=== PATIENT | male | born 1965 | race Caucasian/White ===

== ENCOUNTER 2019-06-09 06:00 | Outpatient (RCR) | payer BC, SELFPAY | END 2019-06-26 23:00 | disposition home or self-care (01) | LOC: TPT 06:00 | PROVIDERS: Family Provider Nurse Practitioner Family; Visit Provider Nurse Practitioner Family | DX: G89.29 Other chronic pain (principal); M25.512 Pain in left shoulder | CPT/HCPCS: 97110 ×5; 97140 ×3; 97530 ×2; G0283 ==

== ENCOUNTER 2020-02-24 15:30 | Emergency (ER) | payer BC, SELFPAY ==
[2020-02-24 15:35] VITALS: BMI 24.3
[2020-02-24 15:48] VITALS: BP 113/73; PULSE 78; RESP 18; TEMP 37.2; O2SAT 94
--- NOTE | 2020-02-24 16:15 | XR_ITS ---
WS: [id number] EXAM: AP CHEST: PORTABLE UPRIGHT DATE OF EXAM: 02/24/2020, 1648 hours COMPARISON: Chest x-ray from 07/06/2018 and 10/08/2014. HISTORY: Patient is 54 years old with fever and fatigue. Cough for the last several days. Shortness of breath. . FINDINGS: The cardiac silhouette is normal in size. The mediastinal contours are normal. The pulmonary vas cularity is normal. There appears to be some minimal patchy infiltrate within the mid and upper oute r right hemithorax. I also question some minimal patchy infiltrate in the peripheral left lung. Ther e is no effusion or pneumothorax. No acute bony abnormality is seen. XR/XR chest 1V portable [id number] IMPRESSION: Suspected patchy infiltrates bilaterally. Most prominent in the upper outer rig ht hemithorax.
[2020-02-24 16:36] LABS: Basophils % 0.2 %; Eosinophils % 0.2 %; Hematocrit 45.5 % (42.0-52.0); Hemoglobin 15.2 g/dL (11.7-16.6); Lymphocytes # 0.7 10^3/uL (0.8-4.8); Lymphocytes % 12.5 %; Mean Corpuscular HGB Conc 33.4 g/dL (30.0-36.0); Mean Corpuscular Hemoglobin 32.3 pg (28.0-34.0); Mean Corpuscular Volume 96.6 fL (80-94); Mean Platelet Volume 11.6 fL (7.4-10.4); Monocytes # 0.6 10^3/uL (0.2-0.9); Monocytes % 10.8 %; Neutrophils # 4.08 10^3/uL (1.8-7.7); Neutrophils % 76.1 %; Nucleated Red Blood Cells % 0 %; Platelet Count 142 10^3/cmm (130-400); Red Blood Count 4.71 10^6/uL (4.1-5.3); Red Cell Distribution Width 12.2 % (12.1-15.1); White Blood Count 5.4 10^3/uL (4.0-10.0)
[2020-02-24 16:49] LABS: INR 0.88 (0.8-1.2)
[2020-02-24 16:52] LABS: D Dimer 1.24 ug/mIFEU (0-0.59)
[2020-02-24 16:58] LABS: Troponin T (5th) Once 6 ng/L (0-15)
[2020-02-24 17:48] LABS: Alanine Aminotransferase 21 U/L (0-41); Albumin Level 3.7 g/dL (3.5-5.2); Alkaline Phosphatase 66 IU/L (40-130); Aspartate Amino Transferase 32 U/L (0-40); Blood Urea Nitrogen 18 mg/dL (6-20); Calcium 8.7 mg/dL (8.5-10.5); Carbon Dioxide 26 mmol/L (22-29); Chloride 102 mmol/L (98-107); Creatine Phosphokinase 29 U/L (39-308); Glucose 98 mg/dL (65-115); Osmolality Calculated 284 mOsm/kg (285-295); Sodium 139 mmol/L (136-145); Total Bilirubin 0.3 mg/dL (0.15-1.2); Total Protein 6.7 g/dL (6.6-8.7)
--- NOTE | 2020-02-24 18:16 | ED_ITS ---
HPI - SOB/Dyspnea General: Chief Complaint: Shortness of Breath/Dyspnea Stated Complaint: COVID+ Time Seen by Provider: 02/24/20 15:55 Source: patient Mode of arrival: ambulatory Limitations: no limitations History of Present Illness: HPI Narrative: 54-year-old gentleman who has been feeling unwell for 11 days now with a low-grade fever initially 101 but now in the low 100s, mild cough, mild shortness of breath presents to the emergency room for evaluation to see if he has pneumonia. About 4 days ago he got tested for COVID-19 and he tested positive. When he saw his primary care provider today his oxygen saturations were 90% so he sent him to the emergency department to evaluate for pneumonia. He currently is afebrile, feels mild shortness of breath, no cough. MD elicited complaint: shortness of breath Pertinent past history: asthma Associated symptoms: Reports fever(s); Deny abdominal pain, nausea, palpitations, polydipsia, polyuria or vomiting Review of Systems General: Reports: 10 or more systems reviewed and unremarkable except in HPI and below Const: Reports: fever(s), chills and body aches Eyes: Denies: change in vision or blurry vision ENMT: Denies: throat pain, enlarged tonsils, odynophagia, hoarseness, mouth pain or swelling of lips/tongue Card: Denies: palpitations, irregular heart rhythm, edema or swelling of feet/ankles Resp: Reports: dyspnea and non-productive cough; Denies: productive cough GI: Denies: abdominal pain, nausea or vomiting : Denies: flank pain, dysuria, urinary frequency, urinary urgency or urinary hesitancy Musc: Denies: neck pain, back pain or extremity swelling Skin/Breast: Denies: rash, pruritus or erythema Neuro: Denies: headache(s), numbness in extremities or weakness in extremities Endo: Denies: polyuria, polydipsia or tired all the time Physical Exam Const: COMMON NORMALS: no acute distress, average body habitus, patient oriented x3, no limitations, healthy appearing, alert and well nourished HENMT: COMMON NORMALS: normocephalic, atraumatic and moist oral mucous membranes HEAD & SCALP: normocephalic and atraumatic Eye: COMMON NORMALS: Equal, round and reactive pupils present, EOMs intact bilaterally, conjunctivae normal and no scleral icterus CONJUNCTIVA: Yes conjunctivae normal PUPIL: Yes Equal, round and reactive pupils present Neck/C-Spine: COMMON NORMALS: no meningeal signs and no JVD Resp: COMMON NORMALS: normal respiratory effort, No retractions, No use of accessory muscles, clear to auscultation bilaterally and percussion normal AUSCULTATION: clear to auscultation bilaterally PERCUSSION: percussion normal Cardio: COMMON NORMALS: no JVD, regular rate, regular rhythm, S1 normal heart sound present, S2 normal heart sound present, No gallops present (Cardio), No clicks present (Cardio), No murmurs present (Cardio), No rub (Cardio) and Peripheral pulses 2+ throughout RATE: regular rate RHYTHM: regular rhythm HEART SOUNDS: S1 normal heart sound present and S2 normal heart sound present PERIPHERAL PULSES: Peripheral pulses 2+ throughout GI: COMMON NORMALS: Normal to inspection, nondistended, normoactive bowel sounds present, Soft to palpation, non-tender, No hepatosplenomegaly present, no masses and no bruits PALPATION: Yes Soft to palpation and Yes No hepatosplenomegaly present Neuro: COMMON NORMALS: patient oriented x3 SENSORIUM/ORIENTATION: Yes alert MENINGEAL SIGNS: Yes no meningeal signs Course Reevaluation(s): Reevaluation #1: discussed his lab and imaging findings with him. White cell count normal, chest x-ray compatible with COVID pneumonia. Since his oxygen saturation has been between 93 and 94% on room air I do not think he deserves to be admitted to the hospital. We will discharge him home with a prescription for azithromycin and dexamethasone. He is to follow-up with his primary care provider. He is given strict instructions to return for low oxygen saturations as he has a pulse oximeter at home. If he has any other concerns or feels worse he is also to return. He voiced understanding and is in agreement with the plan Time: 18:16 Vital Signs: Vital signs: Vital Signs Temperature 98.9 F 02/24/20 15:48 Pulse Rate 63 02/24/20 18:35 Respiratory Rate 18 02/24/20 18:35 Blood Pressure 105/58 02/24/20 18:35 Pulse Oximetry 93 02/24/20 18:35 MDM - SOB/Dyspnea MDM Narrative: Medical decision making narrative: 54-year-old gentleman who presents to the emergency department for evaluation to see if he has pneumonia as he recently tested positive for COVID-19. He has mild shortness of breath, he is afebrile today, has normal oxygen saturations. Chest x-ray is compatible with probably viral pneumonia. His not a candidate for hospital admission. He is therefore discharged home with a prescription for oral steroids and oral azithromycin. Lab Data: Labs: Lab Results 02/24/20 02/24/20 02/24/20 Range/Units 16:25 16:25 16:25 WBC 5.4 (4.0-10.0) 10^3/ uL RBC 4.71 (4.1-5.3) 10^6/u L Hgb 15.2 (11.7-16.6) g/dL Hct 45.5 (42.0-52.0) % MCV 96.6 H (80-94) fL MCH 32.3 (28.0-34.0) pg MCHC 33.4 (30.0-36.0) g/dL RDW 12.2 (12.1-15.1) % Plt Count 142 (130-400) 10^3/c mm MPV 11.6 H (7.4-10.4) fL Neut % (Auto) 76.1 % Lymph % (Auto) 12.5 % [place] % (Auto) 10.8 % Eos % (Auto) 0.2 % Baso % (Auto) 0.2 % Neut # (Auto) 4.08 (1.8-7.7) 10^3/u L Lymph # (Auto) 0.7 L (0.8-4.8) 10^3/u L [place] # (Auto) 0.6 (0.2-0.9) 10^3/u L Eos # (Auto) 0.0 (0.0-0.8) 10^3/u L Baso # (Auto) 0.0 (0.0-0.1) 10^3/u L Nucleated RBC % (a uto) 0 % Nucleated RBCs # 0.0 /100WBC PT 12.20 (12.1-14.9) SECO NDS INR 0.88 (0.8-1.2) D-Dimer 1.24 H (0-0.59) ug/mIFE U Sodium Cancelled Potassium Cancelled Chloride Cancelled Carbon Dioxide Cancelled Anion Gap Cancelled BUN Cancelled Creatinine Cancelled GFR Calculation Cancelled Glucose Cancelled Calculated Osmolal ity Cancelled Lactic Acid (0.5-2.2) mmol/L Calcium Cancelled Ferritin Cancelled Total Bilirubin Cancelled AST Cancelled ALT Cancelled Alkaline Phosphata se Cancelled Lactate Dehydrogen ase Cancelled Creatine Kinase Cancelled Troponin T Gen 5 n g/L (0-15) ng/L C-Reactive Protein Cancelled Total Protein Cancelled Albumin Cancelled Globulin Cancelled Procalcitonin Cancelled 02/24/20 02/24/20 02/24/20 Range/Units 16:25 16:25 17:15 WBC (4.0-10.0) 10^3/ uL RBC (4.1-5.3) 10^6/u L Hgb (11.7-16.6) g/dL Hct (42.0-52.0) % MCV (80-94) fL MCH (28.0-34.0) pg MCHC (30.0-36.0) g/dL RDW (12.1-15.1) % Plt Count (130-400) 10^3/c mm MPV (7.4-10.4) fL Neut % (Auto) % Lymph % (Auto) % [place] % (Auto) % Eos % (Auto) % Baso % (Auto) % Neut # (Auto) (1.8-7.7) 10^3/u L Lymph # (Auto) (0.8-4.8) 10^3/u L [place] # (Auto) (0.2-0.9) 10^3/u L Eos # (Auto) (0.0-0.8) 10^3/u L Baso # (Auto) (0.0-0.1) 10^3/u L Nucleated RBC % (a uto) % Nucleated RBCs # /100WBC PT (12.1-14.9) SECO NDS INR (0.8-1.2) D-Dimer (0-0.59) ug/mIFE U Sodium 139 Potassium 4.0 Chloride 102 Carbon Dioxide 26 Anion Gap 15.0 BUN 18 Creatinine 0.8 GFR Calculation 100.0 Glucose 98 Calculated Osmolal ity 284 L Lactic Acid 1.0 (0.5-2.2) mmol/L Calcium 8.7 Ferritin Total Bilirubin 0.3 AST 32 ALT 21 Alkaline Phosphata se 66 Lactate Dehydrogen ase 265 H Creatine Kinase 29 L Troponin T Gen 5 n g/L 6 (0-15) ng/L C-Reactive Protein 100.9 H Total Protein 6.7 Albumin 3.7 Globulin 3.0 Procalcitonin 0.09 Imaging Data^: CXR: Radiologist's impression: [address] [address] XRay Report Signed Patient: Michael Torres #: [id number] : 1965Acct#:[id number] Age/Sex: 54 / MADM Date: 02/24/20 Loc: ERRoom/Bed: Attending Dr: Ordering Provider/Ordering MD: Anish Powell MD, [facility] [place] Date of Service: 02/24/20 Procedure(s): XR chest 1V portable [id number] Accession Number(s): [id number] Report Number: [id number] WS: [id number] EXAM: AP CHEST: PORTABLE UPRIGHT DATE OF EXAM: 02/24/2020, 1648 hours COMPARISON: Chest x-ray from 07/06/2018 and 10/08/2014. HISTORY: Patient is 54 years old with fever and fatigue. Cough for the last several days. Shortness of breath.. FINDINGS: The cardiac silhouette is normal in size. The mediastinal contours are normal. The pulmonary vascularity is normal. There appears to be some minimal patchy infiltrate within the mid and upper outer right hemithorax. I also question some minimal patchy infiltrate in the peripheral left lung. There is no effusion or pneumothorax. No acute bony abnormality is seen. XR/XR chest 1V portable [id number] IMPRESSION: Suspected patchy infiltrates bilaterally. Most prominent in the upper outer right hemithorax. Dictated By:Lam Ramirez MD Signed By:Lam Ramirez MDSigned Date/Time:02/24/201703 DD/ 01 Discharge Plan Discharge Patient Disposition: Home Clinical Impression: Pneumonia due to 2019 novel coronavirus Condition: Stable Prescriptions: New azithromycin 250 mg tablet See Rx Instructions .ROUTE .COMPLEX 5 Days Qty: 6 RF: 0 dexamethasone 6 mg tablet 6 mg PO DAILY 10 Days Qty: 10 RF: 0 Continued omeprazole 20 mg capsule,delayed release(DR/EC) 20 mg PO DAILY Qty: 90 RF: 0 Singulair 10 mg tablet 10 mg PO DAILY RF: 0 levocetirizine 5 mg tablet 5 mg PO DAILY RF: 0 Dulera 200-5 mcg/actuation Hfa Aerosol Inhaler 2 puff INHALATION BID RF: 0 Salt Rinse See Rx Instructions .ROUTE .COMPLEX RF: 0 Nucala 100 mg/mL auto-injector See Rx Instructions .ROUTE .COMPLEX RF: 0 Discontinued prednisone 10 mg tablet See Rx Instructions .ROUTE .COMPLEX RF: 0 Discharge Orders: Discharge Order (Routine); Ordered 02/24/20 Ordered By: Anish Powell Discharge Diet: Usual diet Discharge Activity: Increase activity as tolerated Patient Instructions: Pneumonia - Viral Activity Restrictions/Additional Instructions: Return for any new or worsening symptoms especially if your oxygen levels drop below 88 or you have significantly worsening breathing problems. Follow-up with your primary care provider within 2 days, even if it is by telemedicine. Take the medications as prescribed. Discharge Date/Time: 02/24/20 18:37 Coding Level of Care Code ED Link Trainer Operator for Tommy Gaitan
[2020-02-24 18:35] VITALS: BP 105/58; PULSE 63; RESP 18; O2SAT 93
[2020-02-24 21:03] LABS: Procalcitonin 0.09 ng/mL (0-0.5)
[2020-02-24 21:14] LABS: C Reactive Protein 100.9 mg/L (0.0-4.9)
[2020-02-24 21:24] LABS: Lactate Dehydrogenase 265 U/L (135-225)
== END 2020-02-24 18:37 | disposition home or self-care (01) ==
PROVIDERS: Emergency Provider Family Medicine
DX: U07.1 COVID-19 (principal); J12.89 Other viral pneumonia
CPT/HCPCS: 12345; 71045; 80053; 82550; 82728; 83605; 83615; 84145; 84484; 85025; 85378; 85610; 86140; 96374; 96375; 99282; 99284; J2930

== ENCOUNTER → 2020-03-05 11:15 | Outpatient (BNVA) | payer BC, SELFPAY | PROVIDERS: Visit Provider Family Medicine | DX: J12.89 Other viral pneumonia; U07.1 COVID-19; Z51.6 Encounter for desensitization to allergens | CPT/HCPCS: 71046 ==

== ENCOUNTER → 2020-07-17 10:30 | Outpatient (BNVA) | payer BC, SELFPAY | PROVIDERS: Visit Provider Nurse Practitioner Family | DX: M25.561 Pain in right knee (principal); M25.562 Pain in left knee; Z51.6 Encounter for desensitization to allergens | CPT/HCPCS: 73562 ==

== ENCOUNTER → 2022-11-04 09:56 | Outpatient (BNVA) | payer BC, SELFPAY | PROVIDERS: PCP Nurse Practitioner; Referring Provider Nurse Practitioner; Visit Provider Student in an Organized Health Care Education/Training Program | DX: M17.12 Unilateral primary osteoarthritis, left knee (principal) | CPT/HCPCS: 73560; 73565 ==

== ENCOUNTER 2023-02-15 10:10 | Outpatient (CLI) | payer BC, SELFPAY ==
--- NOTE | 2023-02-15 10:15 | MR_ITS ---
WS: [id number] MRI LEFT KNEE HISTORY: Medial knee pain. Chronic. Prior meniscal repair. COMPARISON: Radiograph 11/04/2022 Anterior cruciate ligament: Abnormal ACL. Very small caliber ligament. There is a gap in the distal l igament consistent with a full-thickness tear. Posterior cruciate ligament: Intact. Medial collateral ligament: MCL is being displaced from the joint line by the extruded meniscus and o steophytes. Posterior lateral corner structures: Intact. Medial menisci: Abnormal signal throughout the entire posterior horn. Meniscus is extruded from the j oint line. Lateral meniscus: Small amount of increased T2 signal in the posterior horn towards the meniscal root . Fraying along the surfaces of the posterior horn. Extensor mechanism: Distal quadriceps tendon and patellar tendons are intact. Fluid and soft tissue: No joint effusion. There is a small amount of edema surrounding the knee. Lobu lated Eldridge's cyst extends over a length of 4.5 cm. There are a few tiny loose bodies within the cyst . Osseous and articular structures: Patellofemoral compartment: Mild narrowing patellofemoral joint space with mild chondromalacia. No ma rrow edema. Medial compartment: Moderate to severe narrowing of the medial compartment with osteophytes. Loss of cartilage is diffuse with cortical irregularity and a small amount of edema along the weightbearing s urfaces. Lateral compartment: Moderate narrowing of the lateral compartment mild chondromalacia. Marrow edema at the base of the tibial spines. IMPRESSION: 1. Abnormal ACL. Full-thickness tear along the inferior ACL with marked thinning of the fibers. 2. MCL is displaced to the joint line by osteophytes and extruded meniscus. 3. Diffuse abnormal signal throughout the posterior horn medial meniscus from tears and extrusion. 4. Moderate to severe medial compartment internal derangement as described above. Complete loss of ca rtilage along the weightbearing surfaces. 5. Moderate narrowing lateral compartment with mild chondromalacia.
== END 2023-02-15 10:11 | disposition home or self-care (01) ==
PROVIDERS: PCP Nurse Practitioner; Visit Provider Student in an Organized Health Care Education/Training Program
DX: M17.12 Unilateral primary osteoarthritis, left knee (principal); S83.512A Sprain of anterior cruciate ligament of left knee, initial encounter; X58.XXXA Exposure to other specified factors, initial encounter; M25.762 Osteophyte, left knee; M23.8X2 Other internal derangements of left knee; M22.42 Chondromalacia patellae, left knee; Z98.890 Other specified postprocedural states
CPT/HCPCS: 73721

== ENCOUNTER 2024-03-12 20:38 | Emergency (ER) | payer BC, SELFPAY ==
[2024-03-12] VITALS (7 sets, daily range): BP systolic 133–159; BP diastolic 80–105; PULSE 54–65; RESP 14–18; TEMP 36.4; O2SAT 94–98
--- NOTE | 2024-03-12 21:42 | CTR_ITS ---
PROCEDURE INFORMATION: Exam: CT Abdomen And Pelvis Without Contrast Exam date and time: 03/12/2024 9:52 PM Age: 58 years old Clinical indication: Abdominal pain; Localized; Left; Prior surgery; Surgery date: 6+ months; Surgery type: Hernia and appy; Additional info: Left flank/groin pain TECHNIQUE: Imaging protocol: Computed tomography of the abdomen and pelvis without contrast. Radiation optimization: All CT scans at this facility use at least one of these dose optimization techniques: automated exposure control; mA and/or kV adjustment per patient size (includes targeted exams where dose is matched to clinical indication); or iterative reconstruction. COMPARISON: CT chest wo con [id number] 08/21/2018 9:13 AM RADIATION DOSE METRICS: Total DLP (mGy-cm): 572.09 FINDINGS: Lungs: Lung bases are clear as visualized. Diaphragm: There is a small hiatal hernia. Liver: Normal. No mass. Gallbladder and biliary ducts: Normal. No calcified stones. No ductal dilation. Pancreas: Normal. No ductal dilation. Spleen: Normal. No splenomegaly. Adrenal glands: Normal. No mass. Kidneys and ureters: Benign-appearing renal cyst is noted on the right with small punctate internal calcification. No hydronephrosis is noted on the right. Nonobstructing renal calculi are noted bilaterally. There is mild hydronephrosis on the left with hydroureter extending to the distal left ureter where there appears to be 2 adjacent stones present. Both stones measure 2-3 mm in size. Stomach and bowel: There are scattered colonic diverticula. No large bowel wall thickening is appreciated. No dilated loops of large or small bowel is appreciated. Appendix: The appendix is not definitely identified. Intraperitoneal space: Unremarkable. No free air. No significant fluid collection. Vasculature: The aorta is normal in caliber. There is calcified plaque involving the aorta and its branch vessels. Lymph nodes: Unremarkable. No enlarged lymph nodes. Urinary bladder: Unremarkable as visualized. Reproductive: Unremarkable as visualized. Bones/joints: Unremarkable. No acute fracture. Soft tissues: There is a small fat filled periumbilical hernia. CT/CT kidney stone [id number] IMPRESSION: 1. Nephrolithiasis. 2. Mild hydronephrosis on the left with hydroureter extending to the distal left ureter where there are 2 small stones present. 3. Please see above comments for additional details. COMMENTS: Consistent with the [employer]'s Incidental Findings Committee white paper (J Am Brendan Radiol 2018): Any incidental renal lesion less than 1 cm or classified as too small to characterize, or any incidental cystic renal lesion characterized as simple-appearing, is likely benign. No follow-up imaging is recommended for these lesions per consensus recommendations based on imaging criteria.
[2024-03-12 21:47] LABS: Charge for UA Resulting for Rev
[2024-03-12 21:48] LABS: Basophils # 0.1 10^3/uL (0.0-0.1); Basophils % 0.5 %; Eosinophils # 0.6 10^3/uL (0.0-0.8); Eosinophils % 6.4 %; Hematocrit 42.9 % (37-53); Lymphocytes # 1.9 10^3/uL (0.8-4.8); Mean Corpuscular Hemoglobin 32.4 pg (27-33); Mean Corpuscular Volume 95.1 fl (82-101); Mean Platelet Volume 10.3 fL (7.4-10.4); Monocytes # 0.9 10^3/uL (0.2-0.9); Monocytes % 9.4 %; Neutrophils # 6.17 10^3/uL (1.8-7.7); Neutrophils % 63.5 %; Nucleated Red Blood Cells % 0 %; Platelet Count 228 10^3/cmm (157-399); Red Blood Count 4.51 10^6/uL (3.85-5.65); Red Cell Distribution Width 12.9 % (12.1-15.1); White Blood Count 9.71 10^3/uL (3.29-11.43)
[2024-03-12 21:50] LABS: Bilirubin Urine Negative (Negative); Blood Urine 3+ (Negative); Glucose Urine UA Negative (Normal); Ketones Urine Trace (Negative); Leukocyte Esterase Urine Trace (Negative); Nitrate Urine Negative (Negative); Protein Urine 2+ (Negative); Urine Appearance Cloudy (CLEAR); Urine Color Dark Yellow (Yellow)
[2024-03-12 22:03] LABS: Specific Gravity, Urine 1.035 (1.005-1.030)
[2024-03-12 22:04] LABS: Add Urine Culture? Yes; Bacteria Urine TRACE /hpf; Mucus Urine 2+ /hpf; RBC Urine >100 /hpf (0-2); UA Manual Slide Review YES; WBC Urine 0-4 /hpf (0-5)
[2024-03-12] MEDS: ondansetron 2 mg/ML SDV 2 mL 4 MG IVP (22:12)
[2024-03-12] MEDS: HYDROmorphone 1 mg/mL INJ 1 mL 0.4 MG IVP (22:12)
[2024-03-12] MEDS: sodium chloride 0.9% 1,000 ML 999 ML IV (22:15)
[2024-03-12 22:27] LABS: Alanine Aminotransferase 21 U/L (0-41); Albumin Level 4.4 g/dL (3.5-5.2); Alkaline Phosphatase 79 U/L (40-130); Anion Gap 16.5 (5-19); Aspartate Amino Transferase 22 U/L (0-40); Blood Urea Nitrogen 20 mg/dL (8-23); Calcium 9.5 mg/dL (8.5-10.5); Carbon Dioxide 25 mmol/L (22-29); Chloride 103 mmol/L (98-107); Creatinine Clr Calc Pharmacy 75.3984; Globulin 2.3 g/dL (1.3-4.6); Glomerular Filtration Rate 68.3 mL/min (90-130); Glucose 97 mg/dL (65-115); Lipase 18 U/L (13-60); Osmolality Calculated 295 mOsm/kg (285-295); Potassium 3.5 mmol/L (3.5-5.1); Sodium 141 mmol/L (136-145); Total Bilirubin 0.2 mg/dL (0.15-1.2); Total Protein 6.7 g/dL (6.6-8.7)
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
[2024-03-12] MEDS: morphine 4 mg/mL SDV 1 mL IVP (23:04)
[2024-03-13] MEDS: tamsulosin 0.4 mg Capsule PO (00:05)
[2024-03-13] MEDS: HYDROcodone-acetaminophen 7.5-325 mg Tablet 2 TAB PO (00:05)
[2024-03-13 00:11] VITALS: BP 144/91; PULSE 61; RESP 16; O2SAT 97
== END 2024-03-13 00:12 | disposition home or self-care (01) ==
PROVIDERS: Emergency Provider Physician Assistant; PCP Nurse Practitioner
DX: N13.2 Hydronephrosis with renal and ureteral calculous obstruction (principal); Z77.22 Contact with and (suspected) exposure to environmental tobacco smoke (acute) (chronic)
CPT/HCPCS: 74176; 80053; 81003; 81015; 83690; 85025; 87086; 96361; 96374; 96375; 99285; J1170; J2270; J2405; J7030

== ENCOUNTER 2024-04-05 10:16 | Outpatient (CLI) | payer BC, SELFPAY ==
--- NOTE | 2024-04-05 10:36 | XR_ITS ---
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 The heart is normal. The pulmonary vascularity is not increased. No pneumonia or pneumothorax is seen. XR/XR chest 2V* [id number] Impression: Negative chest.
== END 2024-04-05 10:17 | disposition home or self-care (01) ==
PROVIDERS: PCP Nurse Practitioner; Visit Provider Nurse Practitioner
DX: J82.83 Eosinophilic asthma (principal)
CPT/HCPCS: 71046